=== PATIENT | male | born 1980 | race Hispanic/Latino ===

== ENCOUNTER 2019-03-22 15:10 | Emergency (ER) | payer SELFPAY ==
[2019-03-22] MEDS ORDERED: Bacitracin 1 PK ONE (16:23)
== END 2019-03-22 16:33 | disposition home or self-care (01) ==
LOC: ERS 15:10
DX: S01.81XA Laceration without foreign body of other part of head, initial encounter (principal); W20.8XXD Other cause of strike by thrown, projected or falling object, subsequent encounter
CPT/HCPCS: 12002

== ENCOUNTER 2019-04-05 08:36 | Emergency (ER) | payer SELFPAY | END 2019-04-05 08:55 | disposition home or self-care (01) | LOC: ERS 08:36 | DX: S01.01XD Laceration without foreign body of scalp, subsequent encounter (principal); Z79.891 Long term (current) use of opiate analgesic; X58.XXXD Exposure to other specified factors, subsequent encounter ==